=== PATIENT | female | born 1960 ===

== ENCOUNTER 2017-12-28 14:34 | Emergency (ER) | payer BC ==
[2017-12-28 14:52] VITALS: BP 144/84; PULSE 64; RESP 18; TEMP 98.1; O2SAT 99
[2017-12-28] MEDS ORDERED: Tdap Vaccine 0.5 ml Vial (10-64 yrs) IM ONE (15:40)
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
== END 2017-12-28 16:26 | disposition home or self-care (01) ==
LOC: H.ER 14:34
DX: S61.411A Laceration without foreign body of right hand, initial encounter (principal); W26.0XXA Contact with knife, initial encounter; Y92.89 Other specified places as the place of occurrence of the external cause